=== PATIENT | female | born 1975 | race Caucasian/White ===

== ENCOUNTER → 2018-07-03 | Outpatient (CLI) | payer MEDICAID ==
[2018-07-03 09:15] LABS: ALT 38 U/L (9-52); AST 28 U/L (14-36)
== END | disposition home or self-care (01) ==
LOC: LABWHC1 08:36
PROVIDERS: ATTEND Podiatrist Foot & Ankle Surgery
DX: K76.9 Liver disease, unspecified (principal)
CPT/HCPCS: 36415; 84450; 84460

== ENCOUNTER → 2021-07-21 | Outpatient (CLI) | payer MEDICAID ==
[2021-07-21 10:32] VITALS: BMI 30.9
== END ==
LOC: DBWHC3 08:57
PROVIDERS: ATTEND Family Medicine
DX: E66.3 Overweight (principal)
CPT/HCPCS: 97802

== ENCOUNTER → 2021-09-19 | Outpatient (CLI) | payer MEDICAID ==
[~2021-09-19] MED LIST: CASIRIVIMAB (REGN10933) (EUA) 600 MG, IMDEVIMAB (REGN10987) (EUA) 600 MG in SODIUM CHLO... IVPB ONE; SODIUM CHLORIDE 0.9% 50 ML IVPB ONE; SODIUM CHLORIDE 0.9% 500 ML 500 ML in EMPTY BAG 1 BAG IV PRN
[2021-09-19 13:54] VITALS: BP 126/86; PULSE 105; RESP 16; TEMP 99.3
== END ==
LOC: PROCWHC3 12:57
PROVIDERS: ATTEND Family Medicine
DX: U07.1 COVID-19 (principal); E66.9 Obesity, unspecified; Z68.30 Body mass index [BMI] 30.0-30.9, adult; Z88.0 Allergy status to penicillin
CPT/HCPCS: 96360; Q0243; M0243

== ENCOUNTER 2022-09-03 00:11 | Emergency (ER) | payer MEDICAID ==
[2022-09-03 00:14] VITALS: BP 153/95; PULSE 106; TEMP 98.4
[2022-09-03 02:15] LABS: ALT 87 U/L (4-34); AST 178 U/L (14-36); African American GFR (CKD) >90 (>60 ml/min/1.73 sqM); Albumin 4.9 g/dL (3.5-5.0); Alkaline Phosphatase 157 U/L (38-126); Anion Gap 13 mmol/L; Blood Urea Nitrogen 21 mg/dL (7-17); Calcium 10.1 mg/dL (8.4-10.2); Carbon Dioxide 22 mmol/L (22-30); Chloride 101 mmol/L (98-107); Glucose 134 mg/dL (74-99); Lipase 142 U/L (23-300); Non-African American GFR(CKD) >90 (>60 ml/min/1.73 sqM); Sodium 136 mmol/L (137-145); Total Bilirubin 0.6 mg/dL (0.2-1.3); Total Protein 8.3 g/dL (6.3-8.2)
[2022-09-03 02:22] LABS: Appearance,Urine Clear (Clear); Bilirubin,Urine Negative (Negative); Blood,Urine Small (Negative); Budding Yeast,Urine Rare /hpf; Color,Urine Yellow; Glucose,Urine (UA) Negative (Negative); Ketones,Urine Negative (Negative); Leukocyte Esterase,Urine Negative (Negative); Mucus,Urine Rare /hpf; Nitrite,Urine Negative (Negative); PH, Urine 7.5 (5.0-8.0); Protein,Urine Negative (Negative); RBC,Urine 28 /hpf (0-5); Specific Gravity,Urine 1.019 (1.001-1.035); Squamous Epithelial Cell,Urine <1 /hpf (0-4); WBC,Urine 1 /hpf (0-5)
--- NOTE | 2022-09-03 02:25 | ED ---
General Adult HPI - General Chief complaint: Abdominal Pain Stated complaint: Back and Abdominal Pain Time Seen by Provider: 09/03/22 01:08 Source: patient, RN notes reviewed Mode of arrival: ambulatory Limitations: no limitations - History of Present Illness Initial comments: 47-year-old female presents to the emergency Department with complaints of ep igastric and right-sided abdominal pain that radiates through to the mid back and to the right shoulder. Patient states the pain began this afternoon and worsened throughout the evening. States that while she was in the waiting room the intensity again increased. However, patient states her pain completely resolved and she was placed in a room. States she did have some mild nausea earlier today. Denies vomiting or diarrhea. No fever, chills, headache, dizziness, chest pain, shortness of breath. - Related Data Home Medications Medication Instructions Recorded Confirmed Albuterol Inhaler [Ventolin Hfa 2 puff INHALATION BID 09/19/21 09/19/21 Inhaler] Azithromycin 1 tab PO DAILY 09/19/21 09/19/21 predniSONE 1 tab PO DAILY 09/19/21 09/19/21 Previous Rx's Medication Instructions Recorded Ondansetron Odt [Zofran Odt] 4 mg PO Q8HR PRN #10 tab 09/03/22 Allergies Allergy/AdvReac Type Severity Reaction Status Date / Time Penicillins Allergy Unknown Verified 09/03/22 00:14 Review of Systems ROS Statement: Those systems with pertinent positive or pertinent negative responses have been documented in the HPI. ROS Other: All systems not noted in ROS Statement are negative. Past Medical History Past Medical History: No Reported History History of Any Multi-Drug Resistant Organisms: None Reported Past Surgical History: Section, Tubal Ligation Additional Past Surgical History / Comment(s): Removal of uterine fibroids Past Anesthesia/Blood Transfusion Reactions: No Reported Reaction Past Psychological History: No Psychological Hx Reported Smoking Status: Never smoker Past Alcohol Use History: Occasional Past Drug Use History: None Reported General Exam Limitations: no limitations (Well-developed, well-nourished female in no acute distress. Initial temperature 98.4, pulse 106, respirations 18, blood pressure 153/95, pulse ox 90% on room air.) General appearance: alert, in no apparent distress ENT exam: Present: normal oropharynx, mucous membranes moist Neck exam: Present: normal inspection, full ROM. Absent: tenderness, meningis mus, lymphadenopathy Respiratory exam: Present: normal lung sounds bilaterally. Absent: respiratory distress, wheezes, rales, rhonchi, stridor Cardiovascular Exam: Present: regular rate, normal rhythm, normal heart sounds. Absent: systolic murmur, diastolic murmur, rubs, gallop, clicks GI/Abdominal exam: Present: soft, normal bowel sounds. Absent: distended, tenderness, guarding, rebound, rigid Back exam: Absent: CVA tenderness (R), CVA tenderness (L) Neurological exam: Present: alert, oriented X3, CN II-XII intact Psychiatric exam: Present: normal affect, normal mood Skin exam: Present: warm, dry, intact, normal color. Absent: rash Course Vital Signs 09/03/22 00:12 Temperature 98.4 F Pulse Rate 106 H Blood Pressure 153/95 O2 Sat by Pulse 98 Oximetry - Reevaluation(s) Reevaluation #1: 09/04/22 03:00 Upon reassessment, patient continues to rest comfortably. Discussed imaging versus outpatient follow-up. Patient remains pain-free and will follow-up with surgeon. She is prescribed Zofran in case it is necessary. Patient verbalizes understanding and agrees with this plan. Repeat vital signs T=98.0, RR=16, HR=84, WT=037/81, SpO2=99% Medical Decision Making - Medical Decision Making This is a 47-year-old female in no significant past medical history who presents to the emergency Department with resolved abdominal pain. Upon exam, patient is resting comfortably and in no acute distress. Vital signs are stable. She describes her pain is upper abdominal pain that radiates through to the back and right shoulder. Laboratory studies were obtained showing mildly elevated white blood cell count and elevated liver enzymes. Given the location and nature of her pain, I suspect that this is gallbladder in origin. However, as patient is pain-free, resting comfortably, free of nausea, and able to tolerate oral intake she will be discharged home to follow up with surgeon for further evaluation. Strict return parameters were discussed in detail. Patient verbalizes understanding and agrees with this plan. Attending: Simi. - Lab Data Result diagrams: 09/03/22 01:47 09/03/22 01:47 Lab Results 09/03/22 09/03/22 09/03/22 Range/Units 01:47 01:47 01:47 WBC 13.0 H (3.8-10.6) k/uL RBC 3.86 (3.80-5.40) m/uL Hgb 12.5 (11.4-16.0) gm/dL Hct 35.2 (34.0-46.0) % MCV 91.1 (80.0-100.0) fL MCH 32.4 (25.0-35.0) pg MCHC 35.6 (31.0-37.0) g/dL RDW 11.7 (11.5-15.5) % Plt Count 340 (150-450) k/uL MPV 8.1 Neutrophils % 88 % Lymphocytes % 8 % Monocytes % 3 % Eosinophils % 0 % Basophils % 0 % Neutrophils # 11.4 H (1.3-7.7) k/uL Lymphocytes # 1.0 (1.0-4.8) k/uL Monocytes # 0.4 (0-1.0) k/uL Eosinophils # 0.1 (0-0.7) k/uL Basophils # 0.0 (0-0.2) k/uL Sodium 136 L (137-145) mmol/L Potassium 4.0 (3.5-5.1) mmol/L Chloride 101 (98-107) mmol/L Carbon Dioxide 22 (22-30) mmol/L Anion Gap 13 mmol/L BUN 21 H (7-17) mg/dL Creatinine 0.57 (0.52-1.04) mg/dL Est GFR (CKD-EPI)AfAm >90 (>60 ml/min/1.73 sqM) Est GFR (CKD-EPI)NonAf >90 (>60 ml/min/1.73 sqM) Glucose 134 H (74-99) mg/dL Calcium 10.1 (8.4-10.2) mg/dL Total Bilirubin 0.6 (0.2-1.3) mg/dL AST 178 H (14-36) U/L ALT 87 H (4-34) U/L Alkaline Phosphatase 157 H (38-126) U/L Troponin I <0.012 (0.000-0.034) ng/mL Total Protein 8.3 H (6.3-8.2) g/dL Albumin 4.9 (3.5-5.0) g/dL Lipase 142 (23-300) U/L Urine Color Urine Appearance (Clear) Urine pH (5.0-8.0) Ur Specific [place] (1.001-1.035) Urine Protein (Negative) Urine Glucose (UA) (Negative) Urine Ketones (Negative) Urine Blood (Negative) Urine Nitrite (Negative) Urine Bilirubin (Negative) Urine Urobilinogen (<2.0) mg/dL Ur Leukocyte Esterase (Negative) Urine RBC (0-5) /hpf Urine WBC (0-5) /hpf Ur Squamous Epith Cells (0-4) /hpf Urine Mucus (None) /hpf Urine Yeast (Budding) (None) /hpf 09/03/22 Range/Units 01:47 WBC (3.8-10.6) k/uL RBC (3.80-5.40) m/uL Hgb (11.4-16.0) gm/dL Hct (34.0-46.0) % MCV (80.0-100.0) fL MCH (25.0-35.0) pg MCHC (31.0-37.0) g/dL RDW (11.5-15.5) % Plt Count (150-450) k/uL MPV Neutrophils % % Lymphocytes % % Monocytes % % Eosinophils % % Basophils % % Neutrophils # (1.3-7.7) k/uL Lymphocytes # (1.0-4.8) k/uL Monocytes # (0-1.0) k/uL Eosinophils # (0-0.7) k/uL Basophils # (0-0.2) k/uL Sodium (137-145) mmol/L Potassium (3.5-5.1) mmol/L Chloride (98-107) mmol/L Carbon Dioxide (22-30) mmol/L Anion Gap mmol/L BUN (7-17) mg/dL Creatinine (0.52-1.04) mg/dL Est GFR (CKD-EPI)AfAm (>60 ml/min/1.73 sqM) Est GFR (CKD-EPI)NonAf (>60 ml/min/1.73 sqM) Glucose (74-99) mg/dL Calcium (8.4-10.2) mg/dL Total Bilirubin (0.2-1.3) mg/dL AST (14-36) U/L ALT (4-34) U/L Alkaline Phosphatase (38-126) U/L Troponin I (0.000-0.034) ng/mL Total Protein (6.3-8.2) g/dL Albumin (3.5-5.0) g/dL Lipase (23-300) U/L Urine Color Yellow Urine Appearance Clear (Clear) Urine pH 7.5 (5.0-8.0) Ur Specific [place] 1.019 (1.001-1.035) Urine Protein Negative (Negative) Urine Glucose (UA) Negative (Negative) Urine Ketones Negative (Negative) Urine Blood Small H (Negative) Urine Nitrite Negative (Negative) Urine Bilirubin Negative (Negative) Urine Urobilinogen 2.0 (<2.0) mg/dL Ur Leukocyte Esterase Negative (Negative) Urine RBC 28 H (0-5) /hpf Urine WBC 1 (0-5) /hpf Ur Squamous Epith Cells <1 (0-4) /hpf Urine Mucus Rare H (None) /hpf Urine Yeast (Budding) Rare H (None) /hpf Disposition Clinical Impression: Abdominal pain, Elevated liver enzymes Disposition: HOME SELF-CARE Condition: Stable Instructions (If sedation given, give patient instructions): Abdominal Pain (ED) Additional Instructions: Take Zofran if needed for nausea. Tylenol or Motrin for pain. Avoid greasy, fatty, and spicy foods. Call surgeon on Sunday to schedule follow-up appointment. Return to the emergency department if you develop fever, persistent vomiting, worsening pain, or any other concerns. Prescriptions: Ondansetron Odt [Zofran Odt] 4 mg PO Q8HR PRN #10 tab PRN Reason: Nausea Is patient prescribed a controlled substance at d/c from ED?: No Referrals: Russel Awan MD [Primary Care Provider] - 1-2 days Tate Lechuga MD [STAFF PHYSICIAN] - 1-2 days Time of Disposition: 03:15
[2022-09-03 02:33] LABS: Basophils % (A) 0 %; Eosinophils # (A) 0.1 k/uL (0-0.7); Eosinophils % (A) 0 %; HCT 35.2 % (34.0-46.0); HGB 12.5 gm/dL (11.4-16.0); Lymphocytes % (A) 8 %; MCH 32.4 pg (25.0-35.0); MCHC 35.6 g/dL (31.0-37.0); MCV 91.1 fL (80.0-100.0); Mean Platelet Volume 8.1; Monocytes # (A) 0.4 k/uL (0-1.0); Monocytes % (A) 3 %; Neutrophils # (A) 11.4 k/uL (1.3-7.7); Neutrophils % (A) 88 %; Platelet Count 340 k/uL (150-450); RBC 3.86 m/uL (3.80-5.40); RDW 11.7 % (11.5-15.5)
== END 2022-09-03 03:25 | disposition home or self-care (01) ==
LOC: EC 00:11
DX: R10.9 Unspecified abdominal pain (principal); R74.01 Elevation of levels of liver transaminase levels; Z88.0 Allergy status to penicillin
CPT/HCPCS: 36415; 80053; 81001; 83690; 84484; 85025; 99284

== ENCOUNTER → 2022-09-12 | Outpatient (CLI) | payer MEDICAID ==
--- NOTE | 2022-09-12 15:09 | US ---
EXAMINATION TYPE: US gallbladder DATE OF EXAM: 09/12/2022 COMPARISON: NONE CLINICAL HISTORY: K80.00 CALCULUS OF GALLBLADDER W ACUTE CHOLECYST. Pain. TECHNIQUE: Multiple sonographic images of the right upper quadrant are obtained. FINDINGS: EXAM MEASUREMENTS: Liver Length: 14.8 cm Gallbladder Wall: 0.18 cm CBD: 0.5 cm Right Kidney: 9.6 x 5.0 x 4.6 cm WIRE WEAVER CLOTH NOTES: Limited due to gas. Pancreas: Limited due to gas. Liver: Appears wnl Gallbladder: Fold seen. Evidence for sonographic Herman's sign: No CBD: Measures upper limits. Right Kidney: No hydronephrosis or masses seen IMPRESSION: 1. Visualized portions of the right upper quadrant are unremarkable. There is limitation due to bowel gas.
== END | disposition home or self-care (01) ==
LOC: RADUSWWP 12:46
PROVIDERS: ATTEND Surgery
DX: R14.3 Flatulence (principal)
CPT/HCPCS: 76705

== ENCOUNTER 2022-09-13 07:44 | Day surgery (SDC) | payer MEDICAID ==
[2022-09-12 08:19] VITALS: BMI 30.2
[~2022-09-13 07:44] MED LIST changes: +ACETAMINOPHEN TAB 500 MG TAB PO PRN; -CASIRIVIMAB (REGN10933) (EUA) 600 MG, IMDEVIMAB (REGN10987) (EUA) 600 MG in SODIUM CHLO... IVPB ONE; +DEXAMETHASONE SOD PHOSPHATE 4 MG/ML 1 ML VIAL IV ONE; +HEPARIN SODIUM,PORCINE/PF 5,000 UNIT/0.5 ML SYRINGE SQ PRN; +HYDROmorphone 0.5 MG/0.5 ML SYRINGE IVP PRN; +LACTATED RINGERS 1,000 ML IV SCH; +LIDOCAINE 1% (10MG/ML) FOR IV START INTRADERMA PRN; +ONDANSETRON 4 MG/2 ML VIAL IVP ONE; -SODIUM CHLORIDE 0.9% 50 ML IVPB ONE; -SODIUM CHLORIDE 0.9% 500 ML 500 ML in EMPTY BAG 1 BAG IV PRN
[2022-09-13 08:14] VITALS: RESP 16
[2022-09-13] MEDS ORDERED: LACTATED RINGERS 1,000 ML IV ONE (08:22)
--- NOTE | 2022-09-13 08:33 | P.GSHP ---
History of Present Illness H&P Date: 09/13/22 Chief Complaint: Cholecystitis Is a 47-year-old female who's had complete right quadrant pain. Patient describes a recent tach or she had complaints of right upper quadrant pain which radiated to her back. Biochemically she had evidence of biliary colic. Patient presents today for laparoscopic cholecystectomy Past Medical History Past Medical History: Sleep Apnea/CPAP/BIPAP Additional Past Medical History / Comment(s): migraines, frequent UTI's, "elevated BP-no meds", slight constipation, gallstone, COVID Sep 2021 History of Any Multi-Drug Resistant Organisms: None Reported Past Surgical History: Section, Tubal Ligation Additional Past Surgical History / Comment(s): Removal of uterine fibroids Past Anesthesia/Blood Transfusion Reactions: Motion Sickness Smoking Status: Never smoker - Past Family History Mother Family Medical History: No Reported History Additional Family Medical History / Comment(s): niece had guillane barre Medications and Allergies Home Medications Medication Instructions Recorded Confirmed Type Ondansetron Odt [Zofran Odt] 4 mg PO Q8HR PRN #10 tab 09/03/22 09/13/22 Rx Apple Cider Vinegar(Dose Unk) 1 tab PO DIRECTED 09/12/22 09/13/22 History Ginkgo Biloba(Dose Unknown) 1 tab PO DAILY 09/12/22 09/13/22 History Ibuprofen/Pseudoephedrine HCl 1 each PO DIRECTED PRN 09/12/22 09/13/22 History [Advil Cold & Sinus Caplet] Multivitamin [Multivitamins Adult 1 each PO DAILY 09/12/22 09/13/22 History Gummies] Nitrofurantoin Monohyd/M-Cryst 100 mg PO Q12HR PRN 09/12/22 09/13/22 History [Macrobid] Questram + Zinc 1 tab PO DAILY 09/12/22 09/13/22 History Vitamin B Complex 2 each PO DAILY 09/12/22 09/13/22 History Vitamin C/Biotin [Hair, Skin and 1 tab PO DAILY 09/12/22 09/13/22 History Nails Chew] Allergies Allergy/AdvReac Type Severity Reaction Status Date / Time Penicillins Allergy Rash/Hives Verified 09/13/22 07:58 Surgical - Exam Vital Signs Temp Pulse Resp Pulse Ox 98.2 F 92 16 99 09/13/22 08:10 09/13/22 08:10 09/13/22 08:10 09/13/22 08:10 - General well developed, well nourished, no distress - Eyes PERRL - ENT normal pinna - Neck no masses - Respiratory normal expansion - Cardiovascular Rhythm: regular - Abdomen Abdomen: soft, non tender Assessment and Plan Assessment: Biliary colic Chronic cholecystitis We'll perform laparoscopic cholecystectomy
[2022-09-13] MEDS ORDERED: BUPIVACAINE (PF) 0.25% 30 ML VIAL SQ ONE ×2 (08:42→09:18)
[2022-09-13] MEDS ORDERED: ROCURONIUM 10 MG/ML (5 ML VIAL) IV ONE (08:51)
[2022-09-13] MEDS ORDERED: PROPOFOL 10 MG/ML 20 ML VIAL IV ONE (08:51)
[2022-09-13] MEDS ORDERED: SUCCINYLCHOLINE CHLORIDE 200 MG/10 ML VIAL IV ONE (08:51)
[2022-09-13] MEDS ORDERED: fentaNYL (PF) 50 MCG/ML 2 ML AMP ONE (08:51)
[2022-09-13] MEDS ORDERED: LIDOCAINE 2% INJ 20 MG/ML (2 ML VIAL) ONE (08:51)
[2022-09-13] MEDS ORDERED: MIDAZOLAM 2 MG/2 ML VIAL ONE (08:51)
[2022-09-13] MEDS ORDERED: KETOROLAC 15 MG/ML 1 ML VIAL ONE (08:51)
[2022-09-13 09:52] VITALS: TEMP 97
--- NOTE | 2022-09-13 09:53 | P.OP ---
Date of Procedure: 09/13/22 Preoperative Diagnosis: Cholecystitis Postoperative Diagnosis: Cholecystitis Procedure(s) Performed: Laparoscopic cholecystectomy Anesthesia: ASHLEY Surgeon: Tate Lechuga Estimated Blood Loss (ml): 5 Pathology: other (Gallbladder) Condition: stable Disposition: PACU Description of Procedure: The patient was placed on the operating table. The patient received a general endotracheal tube anesthesia. The patients abdomen was prepped and draped in the usual sterile fashion. Through an infraumbilical stab incision, the fascia of the anterior abdominal wall was grasped with a pair of Kochers and then the Veress needle was placed in the peritoneal cavity. Position of the Veress needle was confirmed with positive drop test. The abdomen was then insufflated. After adequate insufflation, the 10 mm trocar was placed in the peritoneal cavity. Following this the laparoscope was placed in the peritoneal cavity. The patient was placed in the head-up, right side up position and then a 5 mm trocar was placed in the right lateral and right subcostal position under direct visualization. A 8 mm trocar was placed in the epigastric position. There were adhesions to the gallbladder suggestive previous chronic cholecystitis. The adhesions were lysed with traction sharp dissection. The gallbladder was grasped in the fundus and infundibulum. Traction on the gallbladder was placed in the lateral and the cephalad positions. The triangle of Calot was visualized.. The cystic duct was bluntly dissected until the union of the cystic duct and common bile duct was seen. A critical view of safety was achieved. The cystic duct was then divided and sealed with the Harmonic scissors. A PDS Endoloop was then placed throughout the cystic duct stump. The cystic artery divided and sealed with the Harmonic scissors. The gallbladder was then removed from the liver bed using Harmonic scissors. The gallbladder was then extracted through the epigastric port site. Operative field was checked for any bleeding spots and Harmonic scissors was used to coagulate the liver bed. The abdomen was irrigated. The trocars were removed. The skin was closed using interrupted 3-0 Vicryl suture. Dermabond dressing were applied. The patient tolerated the procedure well.
[2022-09-13 12:19] VITALS: BP 128/60; PULSE 66
== END 2022-09-13 13:00 | disposition home or self-care (01) ==
LOC: OR 07:44
PROVIDERS: ATTEND Surgery
DX: K80.00 Calculus of gallbladder with acute cholecystitis without obstruction (principal); G47.30 Sleep apnea, unspecified; Z79.1 Long term (current) use of non-steroidal anti-inflammatories (NSAID); Z87.440 Personal history of urinary (tract) infections; Z88.0 Allergy status to penicillin
CPT/HCPCS: 81025; 88304; 47562; J2250; J0330; J1100; J0690; J2405; J3010; J1885; J2704; J1644; J2001

== ENCOUNTER → 2022-10-05 | Outpatient (CLI) | payer MEDICAID ==
[2022-10-05 15:05] LABS: HCT 31.7 % (37.2-46.3); HGB 10.5 g/dL (12.0-15.0); MCH 31.6 pg (27.0-32.0); MCHC 33.1 g/dL (32.0-37.0); MCV 95.5 fL (80.0-97.0); NRBC Per 100 WBC 0 /100 WBCS (0.0-0.0); Platelet Count 365 X 10*3/uL (140-440); RBC 3.32 X 10*6/uL (4.10-5.20); RDW 12.7 % (11.5-14.5); WBC 5.94 X 10*3/uL (4.50-10.00)
[2022-10-05 15:29] LABS: Erythrocyte Sedimentation Rate 19 mm/Hr (0-20)
[2022-10-05 15:58] LABS: ALT 18 U/L (8-44); AST 22 U/L (13-35); African American GFR (CKD) 114.7 (60.0-200.0); Albumin 4.5 g/dL (3.8-4.9); Albumin/Globulin Ratio 1.44 (1.60-3.17); Alkaline Phosphatase 93 U/L (41-126); Amylase 77 U/L (23-121); BUN/Creat Ratio 22.49 Ratio (12.00-20.00); Blood Urea Nitrogen 16.1 mg/dL (9.0-27.0); Calcium 9.6 mg/dL (8.7-10.3); Carbon Dioxide 22.3 mmol/L (20.0-27.5); Chloride 105 mmol/L (96-109); Chol/HDL Ratio 3.38 Ratio; Globulin 3.1 g/dL (1.6-3.3); Glucose 85 mg/dL (70-110); LDL Cholesterol,Calculated 126.6 mg/dL (0.0-131.0); Lipase 32 U/L (14-63); Potassium 4.1 mmol/L (3.5-5.5); Sodium 140 mmol/L (135-145); Total Protein 7.6 g/dL (6.2-8.2)
== END | disposition home or self-care (01) ==
LOC: LABWHC1 10:07
PROVIDERS: ATTEND Family Medicine
DX: Z00.00 Encounter for general adult medical examination without abnormal findings (principal); R10.9 Unspecified abdominal pain
CPT/HCPCS: 36415; 80053; 80061; 82150; 83036; 83690; 84443; 85027; 85652

== ENCOUNTER → 2022-11-27 | Outpatient (CLI) | payer MEDICAID ==
--- NOTE | 2022-11-27 15:03 | US ---
EXAMINATION TYPE: US transvaginal DATE OF EXAM: 11/27/2022 COMPARISON: NONE CLINICAL HISTORY: N93.8 DUB. Heavy, irregular periods TECHNIQUE: Transvaginal (TV). Date of LMP: 11/27/22 EXAM MEASUREMENTS: Uterus: 9.2 x 6.4 x 6.4 cm Endometrial Stripe: 1.2 cm Right Ovary: 2.2 x 1.6 x 1.5 cm Left Ovary: 4.9 x 3.4 x 2.8 cm 1. Uterus: Anteverted Heterogeneous with multiple solid mass, most likely fibroids. * Midline/Posterior/Fundal 3.9 x 2.8 x 3.5cm * Left/Posterior/Fundal 3.4 x 2.5 x 2.4cm * Midline/Posterior 1.6 x .5 x 1.5cm * Lower uterine segment/Anterior near scar 0.86 x 0.80 x 0.94cm 2. Endometrium: ? 3. Right Ovary: wnl 4. Left Ovary: Complex cystic mass 4.0 x 2.4 x 3.0cm 5. Bilateral Adnexa: wnl 6. Posterior cul-de-sac: wnl Small nabothian cysts seen on the initial image. There is a subcentimeter fibroid anterior to the end ometrial stripe. Endometrial stripe abnormal thickened for patient's last known menstrual period. Uziel hnologist grijalva several nearly isoechoic somewhat ill-defined fibroids throughout the uterus. No free fluid. Right ovary unremarkable. Left ovary has a 4.0 x 2.4 x 3.0 cm multiloculated cystic mass without norma d component with irregular hoyt and septations. IMPRESSION: 1. Underlying uterine fibroids are present. 2. Questionable abnormal thickening to endometrial stripe based on last known menstrual period. 3. O-Rads 4 lesion, left ovary. Hemorrhagic cyst felt unlikely. Advise gynecology oncology referral t o further evaluate. Consider pelvic MRI study could further evaluate.
[2022-11-28 10:30] LABS: Estradiol 29.4 pg/mL; Follicle Stimulating Hormone 13.8 mIU/mL; Luteinizing Hormone 10.1 mIU/mL
== END | disposition home or self-care (01) ==
LOC: RADUSWWP 12:53
PROVIDERS: ATTEND Obstetrics & Gynecology
DX: D25.9 Leiomyoma of uterus, unspecified (principal); N93.8 Other specified abnormal uterine and vaginal bleeding; N92.6 Irregular menstruation, unspecified
CPT/HCPCS: 76830; 82670; 83001; 83002

== ENCOUNTER → 2023-03-19 | Outpatient (CLI) | payer MEDICAID ==
--- NOTE | 2023-03-19 09:46 | US ---
EXAMINATION TYPE: US pelvis complete transvag DATE OF EXAM: 03/19/2023 COMPARISON: 11/27/2022 CLINICAL INDICATION: Female, 47 years old with history of N83.0 OVARIAN CYST LT; Hx of left ovarian c yst. TECHNIQUE: Transvaginal (TV) and Transabdominal (TA) . Transvaginal sonographic images were medical ly necessary to better assess the following anatomy: Uterus and ovaries. EXAM MEASUREMENTS: Uterus: 10.9 x 4.2 x 6.1 cm Endometrial Stripe: .9 cm Left Ovary: 2.2 x 1.1 x 1.3 cm 1. Uterus: Anteverted Heterogenous multiple fibroids visualized largest 3.5 cm. 2. Endometrium: wnl 3. Right Ovary: Obscured by overlying bowel gas 4. Left Ovary: wnl 5. Bilateral Adnexa: wnl 6. Posterior cul-de-sac: wnl The left ovarian mass with heterogeneous internal echoes seen on the prior study has resolved in the interval and most likely represented a hemorrhagic cyst. IMPRESSION: 1. Resolution of the previously identified left ovarian mass which most likely represented a hemorrha gic cyst. 2. Multiple small uterine fibroids the largest of which is 3.5 cm. No change compared to previous. 3. Normal endometrial stripe.
== END | disposition home or self-care (01) ==
LOC: RADUSWWP 08:44
PROVIDERS: ATTEND Obstetrics & Gynecology
DX: D25.9 Leiomyoma of uterus, unspecified (principal); N83.202 Unspecified ovarian cyst, left side
CPT/HCPCS: 36415; 76830; 76856; 86304

== ENCOUNTER → 2024-12-31 | Outpatient (CLI) | payer MEDICAID ==
--- NOTE | 2025-01-01 06:50 | MR ---
EXAMINATION TYPE: MR knee LT wo con DATE OF EXAM: 12/31/2024 COMPARISON: NONE HISTORY: Left knee pain on and off for 3 years. Internal derangement. TECHNIQUE: Multiplanar, multisequence images of the knee is performed without IV contrast. FINDINGS: MEDIAL MENISCUS: Subtle oblique signal posterior aspect posterior horn extends to inferior articular surface consistent with tear. LATERAL MENISCUS: Anterior and posterior horns are intact without tear. CRUCIATE LIGAMENTS: The anterior and posterior cruciate ligaments are intact and unremarkable. COLLATERAL LIGAMENTS: The medial collateral ligament and lateral collateral ligament complex are inta ct and unremarkable. EXTENSOR MECHANISM: Visualized quadriceps and patellar tendons are intact. EFFUSION: No significant suprapatellar joint effusion. POPLITEAL CYST: No popliteal/villalba cyst. TRICOMPARTMENT SPACES: Moderate to severe narrowing inferior femoral compartment. Mild narrowing and spurring medial and lateral tibiofemoral compartments. CARTILAGE: Significant chondromalacia patella with full-thickness cartilaginous loss seen along the i nferior portion of the posterior patellar pole. BONE MARROW SIGNAL: Heterogeneous diminished T1 and increased T2 signal over the inferior posterior a spect of the patellar pole measuring 1.5 x 1.0 cm sagittal image 11. Abnormal edema extends into the superior aspect of Hoffa's fat pad. OTHER: No additional significant abnormality is appreciated. IMPRESSION: 1. Fairly severe patellofemoral joint arthropathy inferior patellofemoral compartment as detailed abo ve. Abnormal bone marrow edema is seen. Abnormal edema extends into superior Hoffa's fat pad, correla te for possible impingement syndrome. 2. Suspicion for subtle full-thickness oblique tear posterior aspect posterior horn medial meniscus. [facility], , 01/01/2025 6:48 AM
== END | disposition home or self-care (01) ==
LOC: RADMRIMAIN 11:17
PROVIDERS: ATTEND Orthopaedic Surgery Sports Medicine
DX: M23.304 Other meniscus derangements, unspecified medial meniscus, left knee (principal); R60.0 Localized edema

== ENCOUNTER → 2025-02-07 | Outpatient (CLI) | payer MEDICAID ==
[2025-02-07 13:21] LABS: Basophils # (A) 0.04 X 10*3/uL (0.00-0.10); Basophils % (A) 0.8 %; Eosinophils # (A) 0.05 X 10*3/uL (0.04-0.35); HCT 37.7 % (37.2-46.3); HGB 12.3 g/dL (12.0-15.0); Lymphocytes # (A) 1.92 X 10*3/uL (0.90-5.00); MCH 30.9 pg (27.0-32.0); MCHC 32.6 g/dL (32.0-37.0); MCV 94.7 FL (80.0-97.0); Monocytes # (A) 0.33 X 10*3/uL (0.20-1.00); Monocytes % (A) 6.7 %; NRBC Per 100 WBC 0 X 10*3/uL (0.00-0.01); Neutrophils # (A) 2.57 X 10*3/uL (1.80-7.70); Neutrophils % (A) 52.3 %; Platelet Count 369 X 10*3/uL (140-440); RBC 3.98 X 10*6/uL (4.10-5.20); RDW 12.2 % (11.5-14.5); WBC 4.92 X 10*3/uL (4.50-10.00)
[2025-02-07 13:59] LABS: ALT 21 U/L (8-44); AST 23 U/L (13-35); Albumin 4.4 g/dL (3.8-4.9); Albumin/Globulin Ratio 1.33 Ratio (1.60-3.17); Alkaline Phosphatase 103 U/L (41-126); BUN/Creat Ratio 26.86 Ratio (12.00-20.00); Blood Urea Nitrogen 18.8 mg/dL (9.0-27.0); Calcium 9.9 mg/dL (8.7-10.3); Carbon Dioxide 23.5 mmol/L (21.6-31.8); Chloride 103 mmol/L (96-109); Chol/HDL Ratio 3.86 Ratio; Globulin 3.3 g/dL (1.6-3.3); Glucose 103 mg/dL (70-110); LDL Cholesterol,Calculated 159.1 mg/dL (0.0-131.0); Potassium 4.4 mmol/L (3.5-5.5); Sodium 139 mmol/L (135-145); Total Bilirubin 0.3 mg/dL (0.3-1.2); Total Protein 7.7 g/dL (6.2-8.2)
[2025-02-07 16:30] LABS: Follicle Stimulating Hormone 55.8 mIU/mL
[2025-02-07 16:31] LABS: Luteinizing Hormone 41.4 mIU/mL
== END | disposition home or self-care (01) ==
LOC: LABWHC1 08:54
PROVIDERS: ATTEND Nurse Practitioner Adult Health
DX: Z00.00 Encounter for general adult medical examination without abnormal findings (principal); Z13.1 Encounter for screening for diabetes mellitus; N95.0 Postmenopausal bleeding; R00.2 Palpitations
CPT/HCPCS: 36415; 80053; 80061; 83001; 83002; 83036; 83735; 84443; 85025

== ENCOUNTER → 2025-02-16 | Outpatient (CLI) | payer MEDICAID ==
--- NOTE | 2025-02-16 15:47 | US ---
EXAMINATION TYPE: US transvaginal DATE OF EXAM: 02/16/2025 COMPARISON: 03/19/2023 CLINICAL INDICATION: Female, 49 years old with history of N95.0 POST MENOPAUSAL BLEEDING; Amenorrhea x 1 year - menses 01/28/2025; Hx ovarian cysts and uterine fibroids with removal TECHNIQUE: Transvaginal (TV). Transvaginal sonographic images were originally ordered FINDINGS: Date of LMP: 1 year ago & 01/28/2025 EXAM MEASUREMENTS: Uterus: 9.4 x 5.1 x 7.9 cm Endometrial Stripe: 0.5 cm Right Ovary: 1.9 x 1.1 x 1.8 cm Left Ovary: 2.4 x 1.7 x 1.6 cm 1. Uterus: Anteverted. Multi-fibroid uterus, largest = 3.6 x 2.8 x 3.2 cm 2. Endometrium: Upper limits of normal in a postmenopausal female. 3. Right Ovary: wnl 4. Left Ovary: Paraovarian cyst measuring 1.3 cm. 5. Bilateral Adnexa: wnl 6. Posterior cul-de-sac: wnl IMPRESSION: 1. Markedly heterogeneous, fibroid uterus, largest focal fibroid measuring up to 3.6 cm. Suspect supe rimposed diffuse small fibroid change. A fibroid mapping is desired, consider female pelvic MRI. 2. The endometrial stripe thickness is upper limits of normal at 5 mm. Follow-up as clinically indica coleen. 3. Incidental small paraovarian cyst on the left measuring 1.3 cm. O-RADS 2021 [email or web address] [facility], , 02/16/2025 3:44 PM
== END | disposition home or self-care (01) ==
LOC: RADUSWWP 14:06
PROVIDERS: ATTEND Family Medicine
DX: N95.0 Postmenopausal bleeding (principal); D25.9 Leiomyoma of uterus, unspecified
CPT/HCPCS: 76830